=== PATIENT | male | born 1990 | race Two or more races ===

== ENCOUNTER 2020-04-28 23:38 | Inpatient (IN) | payer SELFPAY ==
[~2020-04-28] VITALS: Ht 167.6 cm; Wt 111.5 kg
[2020-04-29] VITALS (7 sets, daily range): BP systolic 113–132; BP diastolic 64–72
[2020-04-29] MEDS ORDERED: ONDANSETRON HCL 4 MG/2 ML VIAL IV ONE (00:45)
[2020-04-29 01:46] LABS: Basophils # (auto) 0 10 ^3/uL (0-0.2); Eosinophils # (auto) 0 10 ^3/uL (0-0.8); Hemoglobin 19.8 g/dL (13.5-17.5); Monocytes # (auto) 0.7 10 ^3/uL (0-1.3); Neutrophils # (auto) 6.7 10 ^3/uL (1.6-8.6)
[2020-04-29 01:48] LABS: Basophils % (auto) 0.5 % (0.0-2.0); Eosinophils % (auto) 0.1 % (0.0-7.0); Lymphocytes % (auto) 12.2 % (10.0-50.0); Mean Corpuscular Hemoglobin 31.5 pg (28.0-32.0); Mean Corpuscular Hgb Conc. 34.3 g/dL (32.0-36.0); Mean Corpuscular Volume 91.6 fL (80.0-100.0); Monocytes % (auto) 7.8 % (0.0-12.0); Neutrophils % (auto) 79.4 % (37.0-80.0); Nucleated Red Blood Cells % 0.6 %; Platelet Count (auto) 267 10^3/uL (140-450); White Blood Cell 8.4 10^3/uL (4.4-10.8)
[2020-04-29 02:03] LABS: Hematocrit 57.7 % (41.0-53.0)
[2020-04-29 02:05] LABS: Albumin 4.2 g/dL (3.4-5.0); Calcium 9.1 mg/dL (8.5-10.1)
[2020-04-29] MEDS ORDERED: FAMOTIDINE (10MG/ML) 2ML VL IV ONE (04:00)
[2020-04-29] MEDS ORDERED: InsuLIN REG 1unit/0.01ml Soln (100units/ml) IV ONE (04:45)
[2020-04-29] MEDS ORDERED: POTASSIUM CHL 20 Meq TABLET PO ONE ×2 (04:45→21:15)
[2020-04-29] MEDS ORDERED: SODIUM CHLORIDE 0.9% 1,000 ML IV SCH (07:30)
[2020-04-29] MEDS ORDERED: MORPHINE SULFATE 4 MG/ML SYR/VIAL IV PRN (07:30)
[2020-04-29] MEDS ORDERED: DEXTROSE (50%) 50ML SYRG IV PRN ×3 (07:30→16:30)
[2020-04-29] MEDS: ONDANSETRON HCL 4 MG/2 ML VIAL IV PRN (09:34)
[2020-04-29] MEDS ORDERED: PANTOPRAZOLE 40 MG/10 ML VIAL INJ IV SCH (10:00)
--- NOTE | 2020-04-29 10:00 | NUR ---
MS admit from [facility] admitted to tele/MS after SBAR received. Patient oriented to PAMELA [facility], primary RN, unit, room, bed, and unit policies regarding patient care and visiting hours. Patient weighed by bedscale and encouraged to call if they need something. All questions and concerns addressed, patient verbalized understanding. Note:
[2020-04-29 10:53] LABS: Urine Bacteria NONE SEEN /hpf (None Seen); Urine Blood TRACE /uL (Negative); Urine Hyaline Cast FEW /lpf (0 - 2); Urine Mucus FEW (None Seen); Urine Specific Gravity 1.023 (1.001-1.035); Urine WBC 1 /hpf (0 - 3)
[2020-04-29] MEDS ORDERED: ACCU-CHEK COMFORT CURVE STRIP VI SCH ×4 (12:00→18:00)
[2020-04-29] MEDS ORDERED: InsuLIN REG 1unit/0.01ml Soln (100units/ml) SC SCH ×2 (12:00→17:00)
[2020-04-29] MEDS ORDERED: LIDOCAINE VISCOUS 2% 15ML UD ONE (13:04)
[2020-04-29] MEDS ORDERED: InsuLIN R (HUMAN) 100 UNITS in SODIUM CHL 0.9% 99 ML IV SCH (13:14)
[2020-04-29] MEDS ORDERED: MAGNESIUM SULFATE 1GM/100ML 200 ML IV ONE (13:15)
[2020-04-29] MEDS ORDERED: PANTOPRAZOLE 40 MG/10 ML VIAL INJ IV ONE (13:15)
[2020-04-29] MEDS ORDERED: POTASSIUM CHL 20MEQ/100ML 200 ML IV PRN (13:15)
--- NOTE | 2020-04-29 13:23 | NUR ---
Patient left to OR.
--- NOTE | 2020-04-29 13:27 | NUR ---
Dr. Rendon paged regarding verification of orders. Awaiting to call back.
[2020-04-29] MEDS: MIDAZOLAM HCL 5 MG/ML-1ML VIAL ONE ×2 (13:28→13:31)
[2020-04-29] MEDS: fentaNYL CITRATE 100 MCG/2 ML VL ONE ×2 (13:28→13:31)
--- NOTE | 2020-04-29 13:31 | NUR ---
Spoke to Dr. Rendon regarding insulin drip will have to transfer patient to ICU, per MD to wait for the labs result.
--- NOTE | 2020-04-29 14:18 | NUR ---
Patient came back from OR. Patient is drowsy but able to answer the questions. No respiratory distress noted. Skin is warm and dry to touch. Denied any pain at this time. No s/s of hyperglycemia or hypoglycemia noted. Placed a call light within reach. Will continue to monitor.
[2020-04-29] MEDS: SODIUM CHLORIDE 0.9% 1,000 ML IV SCH ×2 (14:22→21:30)
--- NOTE | 2020-04-29 14:44 | NUR ---
Commissary Clerk paged again regarding patient back from OR.
[2020-04-29] MEDS ORDERED: diphenhdrAMINE HCL 50 MG/1 ML VL ONE (15:18)
--- NOTE | 2020-04-29 15:31 | NUR ---
Received a call from Dr. Rendon stated patient needs to transfer to ICU for insulin drip. CN notified.
--- NOTE | 2020-04-29 15:46 | NUR ---
Per Dr. Beach to keep Mild sliding scale with insulin drip, noted and carried it out.
[2020-04-29 16:24] LABS: Albumin 3.2 g/dL (3.4-5.0); Calcium 7.9 mg/dL (8.5-10.1); Magnesium 2.8 mg/dL (1.6-2.6); Potassium 3.4 mmol/L (3.5-5.1)
[2020-04-29 16:29] LABS: BUN/Creatinine Ratio 5.2; Bilirubin, Total 0.8 mg/dL (0.2-1.0); Total Protein 6.9 g/dL (6.4-8.2)
[2020-04-29 16:32] LABS: INR 0.99 (0.9-1.15)
--- NOTE | 2020-04-29 16:57 | NUR ---
Received a call from lab : Phosphorus 0.9. aware.
--- NOTE | 2020-04-29 17:03 | NUR ---
Per MD , patient does not need to transfer to ICU, transfer order cancelled. DC insulin drip, noted and carried it out.
[2020-04-29 17:27] LABS: Basophils # (auto) 0 10 ^3/uL (0-0.2); Basophils % (auto) 0.6 % (0.0-2.0); Eosinophils # (auto) 0 10 ^3/uL (0-0.8); Hemoglobin 16.5 g/dL (13.5-17.5); Lymphocytes # (auto) 0.9 10 ^3/uL (0.4-5.4); Mean Corpuscular Hemoglobin 31.2 pg (28.0-32.0); Mean Corpuscular Hgb Conc. 34.3 g/dL (32.0-36.0); Monocytes # (auto) 0.7 10 ^3/uL (0-1.3); Monocytes % (auto) 11.9 % (0.0-12.0); Neutrophils # (auto) 4.5 10 ^3/uL (1.6-8.6); Neutrophils % (auto) 72.5 % (37.0-80.0); Nucleated Red Blood Cells % 0.1 %; Platelet Count (auto) 200 10^3/uL (140-450); Red Blood Cells 5.27 10^6/uL (4.5-5.90); Red Cell Distribution Width 13.8 % (11.8-14.3); White Blood Cell 6.2 10^3/uL (4.4-10.8)
[2020-04-29] MEDS ORDERED: ERGOCALCIFEROL 50,000 UNIT(1.25MG) CAP PO SCH (18:00)
[2020-04-29] MEDS ORDERED: POTASSIUM PHOSPHATE 44 MEQ in D5W 5% 250 ML IV ONE (18:00)
[2020-04-29] MEDS: INSULIN 70/30 1unit/0.01ml Susp (100units/ml) SC SCH (18:18)
[2020-04-29] MEDS: SUCRALFATE 1 GM/10 ML ORAL SUSP PO SCH ×2 (18:19→22:17)
--- NOTE | 2020-04-29 19:20 | NUR ---
Opening Shift Note Assumed care of patient, awake and alert. No S/S of distress/SOB or pain. Instructed on POC and to call for assist PRN, will continue to monitor for changes Q1hr and PRN. Bed in low position and call light within reach.
[2020-04-29 19:47] LABS: Calcium 7.6 mg/dL (8.5-10.1); Potassium 3.3 mmol/L (3.5-5.1)
[2020-04-29 19:51] LABS: BUN/Creatinine Ratio 5.2
[2020-04-29] MEDS: ACCU-CHEK COMFORT CURVE STRIP VI SCH ×2 (20:11→23:30)
[2020-04-29] MEDS: InsuLIN REG 1unit/0.01ml Soln (100units/ml) SC SCH ×2 (20:11→23:30)
[2020-04-29] MEDS ORDERED: SODIUM BICARBONATE 50ML VIAL 50 ML in SOD CHL 0.45% 1,000 ML IV ONE (21:15)
[2020-04-29] MEDS ORDERED: POTASSIUM CHLORIDE 20 MEQ, LIDOCAINE 1% (LOCAL ANESTH.) 2 ML in SODIUM CHL 0.9% 100 ML IV ONE (21:15)
--- NOTE | 2020-04-29 23:20 | NUR ---
IV insertion IV access obtained, via clean sterile technique by inserting 22 gauge catheter at right hand after 1 attempt. IV secured properly. No trauma to site. Patient tolerated well.
[2020-04-30 01:56] LABS: BUN/Creatinine Ratio 4.5; Calcium 8.3 mg/dL (8.5-10.1); Potassium 3.5 mmol/L (3.5-5.1)
[2020-04-30] MEDS: InsuLIN REG 1unit/0.01ml Soln (100units/ml) SC SCH ×5 (03:55→20:15)
[2020-04-30] MEDS: ACCU-CHEK COMFORT CURVE STRIP VI SCH ×5 (03:56→20:11)
[2020-04-30 05:00] VITALS: BP 150/67
[2020-04-30] MEDS: SODIUM CHLORIDE 0.9% 1,000 ML IV SCH ×3 (05:30→21:50)
[2020-04-30] MEDS: SUCRALFATE 1 GM/10 ML ORAL SUSP PO SCH ×4 (06:37→21:51)
--- NOTE | 2020-04-30 06:43 | NUR ---
patient rounds patient resting in bed denies sob distress or pain. iv is intact and patent. call light within reacgh and bed in low position
[2020-04-30 07:15] LABS: Basophils # (auto) 0 10 ^3/uL (0-0.2); Basophils % (auto) 0.8 % (0.0-2.0); Eosinophils # (auto) 0 10 ^3/uL (0-0.8); Eosinophils % (auto) 0.5 % (0.0-7.0); Hematocrit 44.7 % (41.0-53.0); Hemoglobin 15.3 g/dL (13.5-17.5); Lymphocytes # (auto) 1.2 10 ^3/uL (0.4-5.4); Mean Corpuscular Hgb Conc. 34.3 g/dL (32.0-36.0); Mean Corpuscular Volume 90.4 fL (80.0-100.0); Monocytes # (auto) 0.5 10 ^3/uL (0-1.3); Monocytes % (auto) 10.7 % (0.0-12.0); Nucleated Red Blood Cells % 0.1 %; Platelet Count (auto) 171 10^3/uL (140-450); Red Blood Cells 4.94 10^6/uL (4.5-5.90); Red Cell Distribution Width 13.5 % (11.8-14.3); White Blood Cell 4.7 10^3/uL (4.4-10.8)
--- NOTE | 2020-04-30 07:25 | NUR ---
report given to dayshift rn patient denies sob distress or pain
[2020-04-30 07:33] LABS: Calcium 8.1 mg/dL (8.5-10.1); Magnesium 2.2 mg/dL (1.6-2.6)
[2020-04-30 07:38] LABS: BUN/Creatinine Ratio 4.4; Bilirubin, Total 0.7 mg/dL (0.2-1.0); Phosphorus 1.3 mg/dL (2.5-4.90); Total Protein 6.1 g/dL (6.4-8.2)
[2020-04-30] MEDS: INSULIN 70/30 1unit/0.01ml Susp (100units/ml) SC SCH ×2 (08:29→17:39)
[2020-04-30 09:00] VITALS: BP 124/75
[2020-04-30] MEDS: PANTOPRAZOLE 40 MG/10 ML VIAL INJ IV SCH (09:34)
[2020-04-30 09:49] LABS: Hepatitis B Surface Antibody Negative
[2020-04-30] MEDS ORDERED: CHOLECALCIFEROL (VITD3) 2,000 UNIT CAP PO SCH (10:00)
[2020-04-30 10:22] LABS: Hepatitis A Total Antibody Positive
[2020-04-30] MEDS ORDERED: POTASSIUM CHL 20 Meq TABLET PO ONE (10:45)
[2020-04-30] MEDS ORDERED: POTASSIUM PHOSPHATE 44 MEQ in D5W 5% 250 ML IV ONE (10:45)
[2020-04-30] MEDS: CHOLECALCIFEROL (VITD3) 1,000UNIT=25mCg TAB PO SCH (11:00)
[2020-04-30 11:38] LABS: Hepatitis B Core Total AB Negative
[2020-04-30 11:39] LABS: Hepatitis B Surface Antigen Negative (Negative); Hepatitis C Antibody Negative (Negative)
--- NOTE | 2020-04-30 11:46 | NUR ---
waiting on pharmacy for potassium phos. for patient
[2020-04-30 13:00] VITALS: BP 110/70
[2020-04-30 16:37] VITALS: BP 125/65
[2020-04-30 17:51] VITALS: BP 113/54
[2020-04-30 21:00] VITALS: BP 145/75
[2020-05-01] MEDS: ACCU-CHEK COMFORT CURVE STRIP VI SCH ×4 (00:03→11:50)
[2020-05-01] MEDS: InsuLIN REG 1unit/0.01ml Soln (100units/ml) SC SCH ×4 (00:05→11:51)
[2020-05-01] MEDS: ONDANSETRON HCL 4 MG/2 ML VIAL IV PRN (00:12)
--- NOTE | 2020-05-01 00:53 | NUR ---
1900. REPORT OBTAINED ON PATIENT. 1914. PATIENT MET IN HIS ROOM AND ASSESSED. PATIENT AWAKE AND ALERT AND ORIENTED X 4. DENIED PAIN. VITAL SIGNS WITHIN NORMAL LIMITS.
--- NOTE | 2020-05-01 00:57 | NUR ---
2008. BLOOD SUGAR 305. 8 UNITS OF REGULAR INSULIN GIVEN.
--- NOTE | 2020-05-01 00:59 | NUR ---
0000. ACCUCHECK 225. 4 UNITS INSULIN ADMINISTERED.
--- NOTE | 2020-05-01 04:56 | NUR ---
0440. PATIENT TAUGHT THE SIGNS AND SYMPTOMS OF INSULIN INDUCED HYPOGLYCEMIA. HE VERBALIZED UNDERSTANDING.
[2020-05-01 05:00] VITALS: BP 132/74
[2020-05-01] MEDS: SODIUM CHLORIDE 0.9% 1,000 ML IV SCH (05:30)
[2020-05-01 06:02] LABS: BUN/Creatinine Ratio 2.2; Calcium 7.7 mg/dL (8.5-10.1); Phosphorus 2.8 mg/dL (2.5-4.90)
[2020-05-01 06:20] LABS: Potassium 2.7 mmol/L (3.5-5.1)
--- NOTE | 2020-05-01 06:20 | NUR ---
0620. CRITICAL LAB VALUE: POTASSIUM 2.7.
[2020-05-01] MEDS: SUCRALFATE 1 GM/10 ML ORAL SUSP PO SCH ×2 (06:35→11:50)
--- NOTE | 2020-05-01 06:39 | NUR ---
HOSPITALIST HAS BEEN PAGED REGARDING THE LOW POTASSIUM. CALL BACK IS AWAITING.
--- NOTE | 2020-05-01 06:51 | NUR ---
DR MONREAL CALLED BACK. ORDERED 40MEQ KCL PO ONCE.
[2020-05-01] MEDS ORDERED: POTASSIUM CHL 20 Meq TABLET PO ONE ×2 (07:00→11:15)
--- NOTE | 2020-05-01 07:30 | NUR ---
Opening Shift Note Assumed care of patient, awake and alert. No S/S of distress/SOB or pain. Instructed on POC and to call for assist PRN, will continue to monitor for changes Q1hr and PRN.
[2020-05-01 08:28] VITALS: BP 110/66
[2020-05-01] MEDS: INSULIN 70/30 1unit/0.01ml Susp (100units/ml) SC SCH (10:16)
[2020-05-01] MEDS: CHOLECALCIFEROL (VITD3) 1,000UNIT=25mCg TAB PO SCH (10:20)
[2020-05-01] MEDS: PANTOPRAZOLE 40 MG/10 ML VIAL INJ IV SCH (10:20)
--- NOTE | 2020-05-01 12:09 | NUR ---
Nutrition Consult/assessment Note please see attached link for complete assessment [employer] needs ABW 87 [id number] kcals (23-25 kcal/kgABW), Est Protein needs: 87-95 gms/day (1.0-1.1 gm/kgABW). Will continue to monitor and reassess prn. Addendum: 05/01/20 at [address] Amended: Links added.
[2020-05-01 13:03] VITALS: BP 130/70
--- NOTE | 2020-05-01 14:12 | NUR ---
assessment Patient is a 30 year old male who is alert and oriented. Patients cognitive abilities are intact. Prior to admission patient lived home with family and functioned independently. Patient informed me he is able to care for his own ADLs. Per patient he will return home to his prior living arrangements post discharge and family will transport him home. Patient has no insurance. Patient has been assessed by Jairo Quintanilla of [facility]. Patients medi-lilia is pending. I have provided patient with resources for [facility], Dr. Lipscomb, and [facility] urgent care for follow up visits. I have provided patient with a prescription card from community assistance program. I informed patient he has a right to speak to a social sciences research scientist regarding all care. I informed patient he has a right to participate in any and all discharge planning. Patient does not have a POA and advanced directive. I have offered patient information on POA and advanced directives. I informed the patient the advantages and benefits of having an Advanced Directive. Patient verbalized understanding and agreed to discharge plan. Addendum: 05/01/20 at 1413 by Dinorah SCHULER Amended: Links added.
--- NOTE | 2020-05-01 16:36 | NUR ---
Discharge instructions given as ordered. Encourage to follow up with PMD as instructed. All questions and concerns addressed. Patient verbalized understanding. Medication reconciliation form completed and copy given to patient.. IV removed with catheter intact, pressure dressing applied, . Diabetic teaching given. Patient verbilized undertstanding Patient taken to vehicle via wheelchair with all personal belongings, accompanied by staff TO family member. No distress noted at time of departure.
== END 2020-05-01 16:35 | disposition home or self-care (01) | DRG 638 ==
LOC: ER 23:38 → OVERFLOW 23:39 → CENTRAL 04-29 09:26
PROVIDERS: ADMIT Nurse Practitioner; ATTEND Internal Medicine
PROC: 0DB68ZX Excision of Stomach, Via Natural or Artificial Opening Endoscopic, Diagnostic (ICD-10-PCS; 2020-04-29)
PROC: 0DB88ZX Excision of Small Intestine, Via Natural or Artificial Opening Endoscopic, Diagnostic (ICD-10-PCS; 2020-04-29)
PROC: 0DB38ZX Excision of Lower Esophagus, Via Natural or Artificial Opening Endoscopic, Diagnostic (ICD-10-PCS; principal; 2020-04-29 13:25)
DX: E11.10 Type 2 diabetes mellitus with ketoacidosis without coma (principal); K22.10 Ulcer of esophagus without bleeding; K21.9 Gastro-esophageal reflux disease without esophagitis; E86.0 Dehydration; E66.01 Morbid (severe) obesity due to excess calories; K76.0 Fatty (change of) liver, not elsewhere classified; E87.6 Hypokalemia; K44.9 Diaphragmatic hernia without obstruction or gangrene; K29.70 Gastritis, unspecified, without bleeding; K29.80 Duodenitis without bleeding; E55.9 Vitamin D deficiency, unspecified; Z87.11 Personal history of peptic ulcer disease; Z79.899 Other long term (current) drug therapy
CPT/HCPCS: 36415; 36600; 43239; 74176; 76700; 80048; 80053; 80061; 81001; 82043; 82306; 82728; 82805; 82962; 83036; 83690; 83735; 83930; 84100; 84132; 84443; 85025; 85610; 85730; 86704; 86706; 86708; 86803; 87340; 96365; 96372; C9113; G0378; J1815; J2001; J2250; J2405; J3480; J3490; J7060